=== PATIENT | female | born 1955 | race Caucasian/White ===

== ENCOUNTER 2021-01-25 03:35 | Emergency (ER) | payer MEDICARE, OTHER ==
[~2021-01-25] VITALS: Ht 152.4 cm; Wt 83.9 kg
[2021-01-25] MEDS ORDERED: diphenhydrAMINE HCL 50 MG CAPSULE ONE (03:59)
[2021-01-25] MEDS ORDERED: predniSONE 20 MG TABLET ONE (03:59)
[2021-01-25] MEDS ORDERED: FAMOTIDINE (20 MG) 20 MG TABLET ONE (03:59)
[2021-01-25] MEDS ORDERED: FAMOTIDINE (20 MG) 20 MG TABLET PO ONE (04:00)
[2021-01-25] MEDS ORDERED: predniSONE 10 MG TABLET PO ONE (04:00)
[2021-01-25] MEDS ORDERED: diphenhydrAMINE HCL 50 MG CAPSULE PO ONE (04:00)
--- NOTE | 2021-01-25 04:00 | NUR ---
PT BIBS C/O ASHOK UPPER AND LOWER EXTREMITIES RASHE STARTING AT MIDNIGHT. PT IS ON MONITOR.
[2021-01-25] MEDS ORDERED: PRED50TA PO (04:05)
[2021-01-25 05:37] VITALS: BP 150/70
--- NOTE | 2021-01-25 05:37 | NUR ---
Patient discharged to home in stable condition. Written and verbal after care instructions given. Patient verbalizes understanding of instruction.
== END 2021-01-25 05:37 | disposition home or self-care (01) ==
LOC: ER 03:40
DX: T78.40XA Allergy, unspecified, initial encounter (principal); L50.9 Urticaria, unspecified; Z60.2 Problems related to living alone; Z79.899 Other long term (current) drug therapy; X58.XXXA Exposure to other specified factors, initial encounter
CPT/HCPCS: 99284; J7512 ×2; Q0163

== ENCOUNTER 2021-01-27 02:17 | Emergency (ER) | payer MEDICARE, OTHER ==
[~2021-01-27] VITALS: Ht 162.6 cm; Wt 83.9 kg
[~2021-01-27 02:17] MED LIST: PRED50TA PO
--- NOTE | 2021-01-27 03:00 | NUR ---
PT BIBSELF C/O GENERALIZED HIVES X TUESDAY. PT AAOX4 BREATHING EVENLY AND UNLABORED.PT ATTACHED TO MONITOR AND POX. MD AT BEDSIDE. RT HAND 20G INITIATED. PT GIVEN BLANKET AND CALL LIGHT WITHIN REACH
[2021-01-27] MEDS ORDERED: methylPREDNISolone SOD SUCC 125 MG/2ML VIAL IV ONE (03:30)
[2021-01-27] MEDS ORDERED: FAMOTIDINE/PF INJ 20 MG/2 ML VIAL IV ONE ×2 (03:30)
[2021-01-27] MEDS ORDERED: IV NS 0.9% 1,000 ML BAG IV ONE (03:30)
[2021-01-27] MEDS ORDERED: methylPREDNISolone SOD SUCC 125 MG/2ML VIAL ONE (03:30)
[2021-01-27] MEDS ORDERED: FAMO20TA80 GT (04:45)
--- NOTE | 2021-01-27 04:48 | NUR ---
Patient discharged to home in stable condition. Written and verbal after care instructions given. Patient verbalizes understanding of instruction. IV removed. Catheter intact and site benign. Pressure and 4x4 applied to site. No bleeding noted. Pt ambulatory with a steady gait
[2021-01-27 04:50] VITALS: BP 158/92
== END 2021-01-27 04:48 | disposition home or self-care (01) ==
LOC: ER 03:10
DX: T78.40XA Allergy, unspecified, initial encounter (principal); L50.9 Urticaria, unspecified; Z60.2 Problems related to living alone; Z79.899 Other long term (current) drug therapy; X58.XXXA Exposure to other specified factors, initial encounter
CPT/HCPCS: 96374; 96375; 99284; J2930; J3490; J7040

== ENCOUNTER 2021-02-02 22:02 | Emergency (ER) | payer MEDICARE, OTHER ==
[~2021-02-02] VITALS: Ht 157.5 cm; Wt 88.0 kg
[~2021-02-02 22:02] MED LIST changes: +FAMO20TA80 GT
--- NOTE | 2021-02-02 22:10 | NUR ---
BIBS FOR C/O SWOLLEN LIPS, AND HIVES AROUND THE NECK AND DIFFICULTY BIBS FOR C/O SWOLLEN LIPS, AND HIVES AROUND THE NECK AND DIFFICULTY. PT UNSURE OF THE CAUSE OF THE ALLERGIC REACTION
--- NOTE | 2021-02-02 22:15 | NUR ---
PT A/OX4. CONNECTED PT TO POX AND TELE MONITOR. PT TOLERATING R/A WELL AT 97%.
--- NOTE | 2021-02-02 22:17 | NUR ---
WILIAM SHELTON AT PT'S BEDSIDE
[2021-02-02] MEDS ORDERED: FAMOTIDINE/PF INJ 20 MG/2 ML VIAL IV ONE ×2 (22:27→23:30)
[2021-02-02] MEDS ORDERED: methylPREDNISolone SOD SUCC 125 MG/2ML VIAL ONE (22:27)
--- NOTE | 2021-02-02 22:30 | NUR ---
LAC #20G S/L PATENT AND INTACT. BLOOD COLLECTED AND SENT TO LAB
[2021-02-02] MEDS: methylPREDNISolone SOD SUCC 125 MG/2ML VIAL IV ONE (22:34)
[2021-02-02] MEDS: FAMOTIDINE/PF INJ 20 MG/2 ML VIAL IV ONE (22:34)
--- NOTE | 2021-02-02 23:10 | NUR ---
Note allegra in EDM - 02/02/21 at 2320 by LIBAN BIBS FOR C/O SWOLLEN LIPS, AND HIVES AROUND THE NECK AND DIFFICULTY BIBS FOR C/O SWOLLEN LIPS, AND HIVES AROUND THE NECK AND DIFFICULTY. PT UNSURE OF THE CAUSE OF ALLERGIC REACTION
[2021-02-02] MEDS ORDERED: diphenhydrAMINE HCL 25 MG CAPSULE PO ONE (23:30)
[2021-02-02] MEDS ORDERED: methylPREDNISolone SOD SUCC 125 MG/2ML VIAL IV ONE (23:30)
--- NOTE | 2021-02-03 01:03 | NUR ---
PT SLEEPING COMOFORTABLY EASILY AROUSABLE BREATHING EVEN AND UNLABORED. REPORTS AN IMPROVEMENT IN SYMPTOMS AND THAT SHE "FEELS MUCH BETTER". PT ON MONITOR ALL V/S STABLE. WILL CONTINUE TO MONITOR.
[2021-02-03] MEDS ORDERED: PRED20TA PO (01:50)
[2021-02-03] MEDS ORDERED: EPIN0.3P3 IJ (01:50)
--- NOTE | 2021-02-03 02:00 | NUR ---
Patient discharged to home in stable condition. Written and verbal after care instructions given. Patient verbalizes understanding of instruction.IV line discontinued and gent;e pressure applied to site without complication.
[2021-02-03 02:01] VITALS: BP 158/88
== END 2021-02-03 02:01 | disposition home or self-care (01) ==
LOC: ER 22:06
DX: T78.40XA Allergy, unspecified, initial encounter (principal); Z60.2 Problems related to living alone; Z79.899 Other long term (current) drug therapy; X58.XXXA Exposure to other specified factors, initial encounter
CPT/HCPCS: 96374; 96375; 99285; J2930; J3490